=== PATIENT | female | born 1965 | race Asian ===

== ENCOUNTER 2021-10-31 09:54 | Emergency (ER) | payer OTHER ==
[~2021-10-31] VITALS: Ht 167.6 cm; Wt 94.3 kg
[2021-10-31 09:54] VITALS: TEMP 97.8
[2021-10-31 10:17] LABS: PLATELET COUNT 312 K/uL (152-353)
[2021-10-31 10:27] LABS: POTASSIUM 3.5 mmol/L (3.6-5.2)
[2021-10-31 10:54] VITALS: BP 120/81
== END 2021-10-31 12:50 | disposition home or self-care (01) ==
LOC: ED 09:54
PROVIDERS: Emergency Medicine Emergency Medical Services
DX: R00.2 Palpitations (principal); F41.9 Anxiety disorder, unspecified
CPT/HCPCS: 80053; 83735; 84484; 85027; 93005; 96360; 96374; 96375; 99284; J2060; J3490